=== PATIENT | male | born 1955 | race Caucasian/White ===

== ENCOUNTER → 2018-04-20 | Outpatient (CLI) | payer BC ==
[2016-03-12 12:17] VITALS: BMI 30.0
[~2018-04-20] MED LIST: ATOR10TA24 PO; DOCU-416 PO; FINA5TAB67 PO; HYDR-317 PO; IOPAMIDOL 76% 150 ML INFUS BTL 150 ML ONE; NEOM28OI14 TP; NS(*) 0.9% 50 ML BAG 50 ML ONE; OXYB10TA21 PO; PHEN200T32 PO; SILD100T59 PO; TAMS0.4C70 PO
--- NOTE | 2018-04-20 15:10 | RADIOLOGY IMAGING REPORT ---
FACILITY: [facility] PATIENT NAME: Lilly Grubbs : 1955 MR: [id number] V: [id number] EXAM DATE: ORDERING PHYSICIAN: CE HOYT TECHNOLOGIST: Location: [facility] [place] Patient: Lilly Grubbs : 1955 Visit/Account:[id number] Date of Sevice: 04/20/2018 ABDOMEN/PELVIS W/WO CONTRAST HISTORY: Gross hematuria TECHNIQUE: Axial images acquired through the abdomen/pelvis both with and without IV contrast.. Vidal nal and sagittal reformatting also performed. Dose Lowering Technique One of the following dose optimization techniques was utilized in the performance of this exam: Autom ated exposure control; adjustment of the mA and/or kV according to the patient's size; or use of an i terative reconstruction technique. Specific details can be referenced in the facility's radiology C T exam operational policy. CONTRAST: 125 mL Isovue-370 COMPARISON: None. FINDINGS: Visualized lung bases: Negative. Hepatobiliary: Negative. Spleen: Negative. Adrenals: Negative. Pancreas: Negative. Kidneys ureters and bladder: Kidneys appear unremarkable with no demonstration of urolithiasis, hydro nephrosis or hydroureter. The bladder wall is mildly thickened and trabeculated Genitalia: Prostate gland is markedly enlarged, heterogeneous and projects into the floor the urinar y bladder particularly along the right side the bladder floor.. Seminal vesicles also appear promine nt GI: Negative. Vessels/spaces/nodes: There are numerous small collateral vessel in the pelvis Bones/soft tissues: No aggressive appearing bone lesions are seen Additional findings: None pertinent. IMPRESSION: Prostate gland is markedly enlarged and heterogeneous and projects in the floor the urinary bladder, particularly along the right-sided the bladder floor. Seminal vesicles also appear prominent. The b ladder wall is mildly thickened and trabeculated Kidneys appear unremarkable with no demonstration of urolithiasis, hydronephrosis or hydroureter Report Dictated By: Giselle Garcia MD at 04/20/2018 2:55 PM Report E-Signed By: Giselle Garcia MD at 04/20/2018 3:06 PM WSN:[email or web address]
== END ==
LOC: CT 04:33
PROVIDERS: ATTEND Urology
DX: N40.1 Benign prostatic hyperplasia with lower urinary tract symptoms (principal)
CPT/HCPCS: 74178; J7050; Q9967

== ENCOUNTER → 2018-04-29 | Outpatient (REF) | payer BC ==
[2016-03-12 12:17] VITALS: BMI 30.0
[~2018-04-29] MED LIST changes: -IOPAMIDOL 76% 150 ML INFUS BTL 150 ML ONE; -NS(*) 0.9% 50 ML BAG 50 ML ONE
== END ==
LOC: ZZSENDIN 17:25
PROVIDERS: ATTEND Urology
DX: N31.0 Uninhibited neuropathic bladder, not elsewhere classified (principal)
CPT/HCPCS: 88108